=== PATIENT | female | born 1995 | race Caucasian/White ===

== ENCOUNTER 2017-12-20 22:27 | Emergency (ER) | payer BC ==
[~2017-12-20] VITALS: Ht 149.9 cm; Wt 52.5 kg
[~2017-12-20 22:27] MED LIST: DEPO ESTRADIO5 MG/ML IM; FLEET ENEMA-AD118 ML PR; MIRALAX17 GM PO; MOTRIN600 MG PO; NOHOMEMEDS; PERCOCET 5/31 TABLET PO; VICODIN 5-3001 EACH PO; ZOFRAN ODT4 MG PO
[2017-12-21 00:18] LABS: HEMATOCRIT 38.2 % (36.0-46.0); MCH 29.4 PG (29.0-34.0); MCV 86.4 FL (83-99); PLATELET COUNT 258 K/uL (156-360); RBC DIS.WIDTH-CV 13.2 % (11.8-14.6); RBC DIS.WIDTH-SD 41.1 % (39-53); RED BLOOD COUNT 4.42 M/uL (3.80-5.20); WHITE BLOOD COUNT 7.6 K/uL (4.1-10.2)
[2017-12-21 00:26] LABS: CHLORIDE 108 mEq/L (99-109); SODIUM 139 mEq/L (136-147)
[2017-12-21 00:27] LABS: GLUCOSE 94 mg/dL (70-99)
[2017-12-21 00:31] LABS: CREATININE 0.7 mg/dL (0.6-1.3); GFR ESTIMATE (CALCULATED) > 59 mL/min/
[2017-12-21 00:32] LABS: UREA NITROGEN (BUN) 11 mg/dL (9-23)
[2017-12-21 00:40] LABS: QUANTITATIVE HCG < 4.0 MIU/ML
[2017-12-21] MEDS ORDERED: TRAMADOL HCL50 MG PO (01:06)
[2017-12-21] MEDS ORDERED: MOTRIN600 MG PO (01:06)
[2017-12-21 01:29] VITALS: BP 120/66
== END 2017-12-21 01:31 | disposition home or self-care (01) ==
LOC: EME 22:27
PROVIDERS: Physician Assistant
DX: S80.02XA Contusion of left knee, initial encounter (principal); S30.811A Abrasion of abdominal wall, initial encounter; M54.2 Cervicalgia; Y04.0XXA Assault by unarmed brawl or fight, initial encounter; D16.9 Benign neoplasm of bone and articular cartilage, unspecified; Z88.5 Allergy status to narcotic agent; Z88.6 Allergy status to analgesic agent
CPT/HCPCS: 70360; 73564; 80048; 81003; 84702; 85027; 99281; 99283